=== PATIENT | male | born 1975 | race Two or more races ===

== ENCOUNTER 2019-11-27 12:53 | Inpatient (IN) | payer OTHER ==
[~2019-11-27] VITALS: Ht 165.1 cm; Wt 59.6 kg
[2019-11-27 13:58] LABS: Basophils # (auto) 0 10 ^3/uL (0-0.2); Basophils % (auto) 0.5 % (0.0-2.0); Eosinophils # (auto) 0 10 ^3/uL (0-0.8); Eosinophils % (auto) 0.8 % (0.0-7.0); Hematocrit 42.2 % (41.0-53.0); Hemoglobin 14.5 g/dL (13.5-17.5); Lymphocytes # (auto) 1.3 10 ^3/uL (0.4-5.4); Lymphocytes % (auto) 28.8 % (10.0-50.0); Mean Corpuscular Hemoglobin 32.6 pg (28.0-32.0); Mean Corpuscular Hgb Conc. 34.4 g/dL (32.0-36.0); Mean Corpuscular Volume 94.8 fL (80.0-100.0); Monocytes # (auto) 0.3 10 ^3/uL (0-1.3); Monocytes % (auto) 5.6 % (0.0-12.0); Neutrophils # (auto) 2.9 10 ^3/uL (1.6-8.6); Neutrophils % (auto) 64.3 % (37.0-80.0); Nucleated Red Blood Cells % 0.1 %; Platelet Count (auto) 260 10^3/uL (140-450); Red Blood Cells 4.45 10^6/uL (4.5-5.90); White Blood Cell 4.5 10^3/uL (4.4-10.8)
[2019-11-27 14:11] LABS: Albumin 4.6 g/dL (3.4-5.0); Calcium 9.3 mg/dL (8.5-10.1); Potassium 4.1 mmol/L (3.5-5.1)
[2019-11-27 14:14] LABS: Bilirubin, Total 0.4 mg/dL (0.2-1.0); Total Protein 7.8 g/dL (6.4-8.2)
[2019-11-27 15:11] LABS: Amylase 70 U/L (25-115); Lipase 111 U/L (73-393)
[2019-11-27 17:04] LABS: Urine Bacteria NONE SEEN /hpf (None Seen); Urine Blood Negative /uL (Negative); Urine Specific Gravity 1.009 (1.001-1.035); Urine WBC <1 /hpf (0 - 3)
[2019-11-27] MEDS ORDERED: TEMAZEPAM 15 MG CAP PO PRN (18:00)
[2019-11-27] MEDS ORDERED: CARISOPRODOL 350 MG TAB PO PRN (18:00)
[2019-11-27] MEDS: MORPHINE SULF INJ 2 MG/ML SYRINGE 1ML IV PRN ×2 (18:10→21:41)
[2019-11-27] MEDS: ONDANSETRON HCL 4 MG/2 ML VIAL IV PRN ×2 (18:11→21:41)
[2019-11-27] MEDS: SODIUM CHLORIDE 0.9% 1,000 ML IV SCH (18:11)
[2019-11-27] MEDS: levoFLOXacin 500MG 100 ML IV SCH (18:11)
[2019-11-27] MEDS ORDERED: TEMA15CA91 PO (19:17)
[2019-11-27] MEDS ORDERED: CARI-277 PO (19:17)
[2019-11-27] MEDS ORDERED: TRAM50TA2 PO (19:17)
[2019-11-27] MEDS ORDERED: TRAM-711 PO (19:17)
[2019-11-27] MEDS: metroNIDAZOLE 500MG/100ML 100 ML IV SCH (21:41)
[2019-11-27 21:45] VITALS: BP 109/63
[2019-11-28] MEDS: MORPHINE SULF INJ 2 MG/ML SYRINGE 1ML IV PRN (01:51)
[2019-11-28] MEDS: ONDANSETRON HCL 4 MG/2 ML VIAL IV PRN ×2 (01:51→11:20)
[2019-11-28] MEDS: SODIUM CHLORIDE 0.9% 1,000 ML IV SCH ×2 (03:41→13:30)
[2019-11-28 05:30] VITALS: BP 83/54
[2019-11-28] MEDS ORDERED: ALBUMIN 5% 250 ML IV ONE (05:45)
[2019-11-28] MEDS: metroNIDAZOLE 500MG/100ML 100 ML IV SCH ×2 (06:00→14:00)
[2019-11-28 06:26] LABS: Basophils # (auto) 0 10 ^3/uL (0-0.2); Basophils % (auto) 0.7 % (0.0-2.0); Eosinophils # (auto) 0.1 10 ^3/uL (0-0.8); Eosinophils % (auto) 3.1 % (0.0-7.0); Hematocrit 38.9 % (41.0-53.0); Hemoglobin 13.3 g/dL (13.5-17.5); Lymphocytes # (auto) 1.5 10 ^3/uL (0.4-5.4); Lymphocytes % (auto) 34.1 % (10.0-50.0); Mean Corpuscular Hemoglobin 32.8 pg (28.0-32.0); Mean Corpuscular Hgb Conc. 34.3 g/dL (32.0-36.0); Mean Corpuscular Volume 95.7 fL (80.0-100.0); Monocytes # (auto) 0.4 10 ^3/uL (0-1.3); Monocytes % (auto) 8.3 % (0.0-12.0); Neutrophils # (auto) 2.4 10 ^3/uL (1.6-8.6); Neutrophils % (auto) 53.8 % (37.0-80.0); Platelet Count (auto) 232 10^3/uL (140-450); Red Blood Cells 4.07 10^6/uL (4.5-5.90); Red Cell Distribution Width 13.6 % (11.8-14.3); White Blood Cell 4.5 10^3/uL (4.4-10.8)
[2019-11-28 06:42] LABS: BUN/Creatinine Ratio 16.3; Calcium 8.3 mg/dL (8.5-10.1); Potassium 3.9 mmol/L (3.5-5.1)
[2019-11-28 09:00] VITALS: BP 139/61
[2019-11-28] MEDS: levoFLOXacin 500MG 100 ML IV SCH (10:12)
[2019-11-28 12:32] VITALS: BP 139/61
== END 2019-11-28 14:29 | disposition home or self-care (01) | DRG 392 ==
LOC: ER 13:00 → OVERFLOW 13:01 → EAST 18:46
PROVIDERS: ADMIT Nurse Practitioner Acute Care; ATTEND Family Medicine
DX: K57.32 Diverticulitis of large intestine without perforation or abscess without bleeding (principal); L89.90 Pressure ulcer of unspecified site, unspecified stage; M79.601 Pain in right arm; Z72.0 Tobacco use; Z79.891 Long term (current) use of opiate analgesic
CPT/HCPCS: 36415; 74176; 80048; 80053; 81001; 82150; 83605; 83690; 84484; 85025; 96374; G0378; J1956; J2405; J3490